=== PATIENT | male | born 1990 | race Caucasian/White ===

== ENCOUNTER 2016-10-04 09:18 | Emergency (ER) | payer SELFPAY ==
--- NOTE | 2016-10-04 11:08 | ED CLINICAL REPORT ---
Clinical Report - Physicians/Mid Levels [facility] [address] [place] [address] 10/04/2016 9:20 Patient: KORY HENDRIX Time Seen: 928. Arrived- By private vehicle. Historian- patient. HISTORY OF PRESENT ILLNESS Chief Complaint: ABDOMINAL PAIN. This started past few days and is still present and worsening. It was gradual in onset and has been constant but is not gone now. It is described as sharp and burning and it is described as located in the epigastric area and radiating (back). At its maximum, severity described as moderate. When seen in the E.D., severity described as moderate. Modifying factors- worsened by food. Relieved by rest. The patient has had nausea. He has had vomiting (food stuffs). He has had diarrhea (brown). No additional abdominal pain. (reports the pain worsens as soon as he tries to eat something or smells food despite having a good appetite). Similar symptoms previously: None. Recent medical care: Not recently seen/assessed. REVIEW OF SYSTEMS No fever or chest pain. All systems otherwise negative, except as recorded above. PAST HISTORY See nurses notes. Medications: None. Allergies: None. SOCIAL HISTORY Never smoker. History of drug use: marijuana. No alcohol use. No recent travel. Is a local resident. FAMILY HISTORY Negative. ADDITIONAL NOTES The nursing notes have been reviewed. PHYSICAL EXAM Vital Signs: 10/04/2016 09:25 BP: 152/82. HR: 60. RR: 22. O2 saturation: 100%. Oxygen saturation normal. Appearance: Alert. Oriented X3. Patient in mild distress. Eyes: Pupils equal, round and reactive to light. Eyes normal inspection. ENT: Ears normal. Nose normal. Pharynx normal. CVS: Normal heart rate and rhythm. Heart sounds normal. Pulses normal. Respiratory: No respiratory distress. Breath sounds normal. Chest nontender. Abdomen: Soft and nontender. Bowel sounds normal. No mass. (negative Weathers's. No tenderness at McBurney's. No rebound or guarding). Skin: Skin warm and dry. Normal skin color. No rash. Normal skin turgor. Extremities: Extremities exhibit normal ROM. No lower extremity edema. Neuro: Oriented X 3. No motor deficit. No sensory deficit. LABS, X-RAYS, AND EKG Laboratory Tests: UA-Culture if indicated: ([place]: 10/04/2016 10:11) ( [facility] 10/04/2016 10:25) Final results Test Result Flag Units (Reference) URINE COLOR YELLOW URINE APPEARANCE SL CLOUDY URINE GLUCOSE NEGATIVE (NEGATIVE) URINE BILIRUBIN NEGATIVE (NEGATIVE) URINE KETONE NEGATIVE (NEGATIVE) URINE SPECIFIC GRAVITY 1.010 (1.010-1.030) URINE PH >= 9.0 H (5.0-8.0) URINE PROTEIN 3+ (NEGATIVE) URINE UROBILINOGEN 2.0 EU/dL (0.2-1.0) The urobilinogen reagent area may react with interferingsubstances known to react with Corbin's reagent such asp-aminosalicylic acid and sulfonamides. Atypical colorreactions may be obtained in the presence of highconcentrations of p-aminobenzoic acid. The absence ofurobilinogen cannot be determined with this test. URINE NITRITE NEGATIVE (NEGATIVE) URINE BLOOD NEGATIVE (NEGATIVE) URINE LEUK ESTERASE NEGATIVE (NEGATIVE) URINE RBC 0-1 rbc/hpf (0-1) URINE WBC 0-1 wbc/hpf (0-1) URINE EPITHELIAL CELLS 0-1 EPI/hpf (0-5) URINE BACTERIA TRACE (<1+) (NONE SEEN) URINE COMMENT CULT NOT INDICATED 3+ AMORPHOUS PHOSPHATESURINE CULTURES ARE SET-UP BASED ON THE FOLLOWING CRITERIA:POSITIVE NITRITEPOSITIVE LEUKOCYTE ESTERASEGREATER THAN 10 WHITE BLOOD CELLSMODERATE (2+) OR GREATER BACTERIA CBC w Diff: (BRENTON: 10/04/2016 09:30) ( [facility] 10/04/2016 09:56) Final results Test Result Flag Units (Reference) WHITE BLOOD COUNT 13.9 H K/uL (4.5-11.5) RED BLOOD COUNT 5.15 M/uL (4.50-5.90) HEMOGLOBIN 16.2 gm/dL (13.5-17.5) HEMATOCRIT 49.0 % (41.0-53.0) MEAN CELL VOLUME 95 fL (80-100) MEAN CORPUSCULAR HGB 31 pg (26-34) MEAN CORPUSCULAR HGB CONC 33 g/dL (31-37) RED CELL DISTRIBUTION WIDTH 13.5 % (11.6-14.8) PLATELET COUNT 222 K/uL (150-400) NEUTROPHIL % 90.8 H % (50-75) LYMPH % 7.0 L % (25-40) MONO % 1.9 L % (3-14) EOSINOPHIL % 0 % (0-4) BASOPHIL % 0.3 % (0-2) CMP: (BRENTON: 10/04/2016 09:30) ( MsgRcvd 10/04/2016 09:59) Final results Test Result Flag Units (Reference) GLUCOSE 150 H mg/dL (70-110) BUN 20 H mg/dL (7-18) CREATININE 0.9 mg/dL (0.6-1.3) Estimated GFR >60 mL/min Estimated GFR- >60 mL/min Note: Persistent reduction over 3 months in eGFR<60 mL/min/1.73 m2 defines CKD. Patients with eGFR values>=60 mL/min/1.73 m2 may also have CKD if evidence ofpersistent proteinuria. Additional information may be foundat www.kidney.org. SODIUM 144 mmol/L (136-145) POTASSIUM 3.4 L mmol/L (3.5-5.1) CHLORIDE 103 mmol/L (98-107) CARBON DIOXIDE 31 mmol/L (21-32) CALCIUM 9.8 mg/dL (8.5-10.1) TOTAL PROTEIN 8.3 H g/dL (6.4-8.2) ALBUMIN 4.8 g/dL (3.3-5.0) BILIRUBIN, TOTAL 0.5 mg/dL (0.0-1.0) ALKALINE PHOSPHATASE 98 U/L (46-116) AST (SGOT) 19 U/L (15-37) ALT (SGPT) 36 U/L (12-78) LIPASE 87 U/L (73-393) . PROGRESS AND PROCEDURES Course of Care: the patient is a pleasant 25-year-old male with no pertinent past medical history presenting for evaluation of epigastric abdominal pain with nausea vomiting diarrhea. At this time differential diagnosis includes acute bronchitis, hepatitis, orgastritis/peptic ulcer disease. Patient be evaluated with GI cocktail as well as laboratory studies including urinalysis CBC, CMP, lipase. We'll also provide patient with fluids here in the emergency department as if he is having diarrhea and nausea and vomiting, likely has a small component of dehydration. Patient is agreeable to treatment plan. Laboratory studies are currently pending. Patient's workup is unremarkable remarkable for the findings above. Patient with mild elevation in white blood cell count. Liver enzymesand lipase are noted to be normal. No signs of urinary tract infection. BUN/creatinine ratio is greater than 20. Small component of dehydration noted. Patient reports complete relief of his discomfort with the GI cocktail. Patient likely with peptic ulcer disease versus gastritis. Because of the diarrhea and the nausea and vomiting, gastritis more likely favored. Patient will be given a trial of antacid medications and encouraged patient to follow up with his primary care doctor. Do not fill patient is admitted to the hospital require further emergency department workup/evaluation. Did not fill patient has acute cholecystitis. Patient's abdominal exam is continued to be benign and reassuring. Head discussion with patient in regards his workup here in the emergency department to home care, follow-up, and return precautions. All questions have been answered. The patient expressed understanding of these instructions and was agreeable to them. Prior to patient's depression in the emergency department he is noted to be tolerating by mouth. Or issues was provided because of the patient's slightly low potassium at 3.4. Do not feel patient needs to be started on potassium supplements however because of the patient's symptoms here today likely will resolve once he is able to eat and drink normally. CLINICAL IMPRESSION Acute epigastric abdominal pain. Vomiting with nausea. Diarrhea Mild dehydration INSTRUCTIONS Off work today. Warnings: GENERAL WARNINGS: Return or contact your physician immediately if your condition worsens or changes unexpectedly, if not improving as expected, or if other problems arise. SPECIFICALLY, return if you develop pain, fever, vomiting, the inability to keep fluids down, blood in vomitus, blood in diarrhea, fainting or lightheadedness. Your Current Medications: CONTINUE TAKING THE FOLLOWING MEDICATIONS: None*. Prescription Medications: Zofran (orally disintegrating tablets) 4 mg: take 1 orally every 8 hours as needed for nausea and vomiting. Dispense ten (10). No refill. Substitution is permissible. Pepcid 20 mg: take 1 orally every 12 hours for 10 days as needed for indigestion, upset stomach or heartburn. Dispense twenty (20). No refills. Substitution is permissible. Follow-up: Return to the emergency department as needed. Follow up with your doctor in three days. Reason for referral: recheck today's concerns. Summary of care provided to patient via paper. Screening today revealed the patient's blood pressure to be in the normal range. The patient should follow up with a primary care provider for blood pressure management. Understanding of the discharge instructions verbalized by patient. (Electronically signed by Garry Womack Dr. 10/04/2016 13:53)
--- NOTE | 2016-10-04 11:08 | ED NURSING NOTES ---
Clinical Report - Nurses [facility] [place] [address] 10/04/2016 9:20 Patient: KORY HENDRIX TRIAGE Triage time 09:25. Acuity: LEVEL 3. Chief Complaint: ABDOMINAL PAIN, NAUSEA, VOMITING and DIARRHEA and (Epigastric pain radiating to his back). --09:29 Brandee Dior R.N. 09:25 10/04/16. BP: 152/82. HR: 60. RR: 22. O2 saturation: 100%. Pain level now 03/11. --09:29 Brandee Dior R.N. Weight: 72.5 kg stated. Height/Length: 71 inches Per Patient. BMI: 22.3. --09:24 Brandee Dior R.N. Medications None. --09:27 Brandee Dior R.N. Allergies None. --09:27 Brandee Dior R.N. History Arrived by private vehicle, and accompanied by family. Primary physician (none). Onset was abrupt. (about 3 days). 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 PAST MEDICAL HX: Immunizations: status is unknown. SOCIAL HX: Never smoker. History of heavy drug use: marijuana. No alcohol use. --09:29 Brandee Dior R.N. ADDITIONAL SURGERIES: Right arm. --09:27 Brandee Dior R.N. PHYSICAL ASSESSMENT Ambulatory to room. Patient gowned. GENERAL / NEURO / PSYCH: Oriented X 4. Appears in pain, anxious and in distress. RESPIRATORY: Respirations not labored. GI / : Rebound tenderness. SKIN: Skin is warm and dry. --:29 Brandee Dior R.N. NURSING PROGRESS NOTES Patient gowned. Call light placed in reach. Patient ready for evaluation- ED physician notified. --:29 Brandee Dior R.N. 09:30 10/04/2016 Site #1 started via IV in the left forearm with an 20g angiocath; one attempt. Blood drawn: rainbow set. Labeled in the presence of the patient and sent to the lab. Saline lock flushed with 10 mL saline. --09:30 Brandee Dior R.N. 09:35 10/04/2016 Zofran (Ondansetron HCl) IVP 4 mg given over 1 minute(s) via site #1. Allergies verified and confirmed 5 rights. IV patency established. IV site checked: no pain, redness, or swelling. IV flushed thoroughly pre- and post-medication administration. IVP given by RN. --09:35 Brandee Dior R.N. 09:39 10/04/2016 Started bag #1 1000 mL IV Fluids IV NS (Saline); bolus of 1000 mL wide open via site #1. Allergies verified and confirmed 5 rights. IV patency established. IV site checked: no pain, redness, or swelling. IV flushed thoroughly pre- and post-medication administration. --09:39 Brandee Dior R.N. 09:49 10/04/2016 GI COCKTAIL WHITE (Simethicone) PO 30 mL given. Allergies verified and confirmed 5 rights. --09:54 Brandee Dior R.N. 10:55 10/04/16. BP: 125/68. HR: 45. RR: 16. O2 saturation: 99%. Pain level now 0/10. --10:55 Brandee Dior R.N. The patient reports no complaints and he is calm. Overall patient status is improved. --10:55 Brandee Dior R.N. ( fluids offered). --10:58 Brandee Dior R.N. 11:18 10/04/2016 Site #1 removed upon discharge. Bandaid applied. --11:18 Brandee Dior R.N. DISPOSITION / DISCHARGE Departure time: 11:18. Condition at departure: improved. No learning barriers present. Discharge instructions provided and reviewed with the patient. Patient verbalized understanding. Written instructions provided in Cypriot. The patient was discharged home and accompanied by family. He left the Emergency Department ambulatory and via private vehicle. Patient driving. --11:18 Brandee Dior R.N. 11:17 10/04/16. BP: 117/74. HR: 48. RR: 16. O2 saturation: 99%. Pain level now 0/10. --11:18 Brandee Dior R.N. Locked/Released at 10/04/2016 11:19 by Brandee Dior R.N.
--- NOTE | 2016-10-04 11:08 | ED ORDER SUMMARY ---
..... Patient: KORY HENDRIX OrderSheet [facility] VisitID: [id number] [address] [place] [address] 25y, M Registration Date/Time: 10/04/2016 ORDER SHEET Weight: 72.5 kg (stated) Allergies: None GENERAL ORDERS: CBC w Diff Urgent (09:38 10/04/2016 Raul Rondon) (9:39 DMakasi R.N.) CMP Urgent (09:10/04/2016 Raul Rondon) (9:39 DMakasi R.N.) UA-Culture if indicated Urgent (09:10/04/2016 Raul Rondon) (9:54 Carlitos R.N.) Lipase Urgent (:10/04/2016 Raul Rondon) (9:39 Carlitos R.N.) Pulse oximeter (09:10/04/2016 Raul Rondon) (9:39 Carlitos R.N.) PO Fluids (OJ) (10:56 10/04/2016 Raul Rondon) (10:57 Carlitos R.N.) MEDICATION ORDERS: GI Cocktail WHITE PO 30 mL (NOW) (09:38 10/04/2016 Raul Rondon) (9:54 DMakasi R.N.) IV FLUIDS: Zofran IV 4 mg (NOW) (09:34 10/04/2016 Carlitos R.NMitch verbal order read back to Raul Rondon) (9:35 DMakasi R.N.) IV NS : initial bolus 1000 mL (1000 mL/hr), then none - for X1 (NOW) (09:38 10/04/2016 Raul Rondon) (9:39 Carlitos R.N.) ORDER SHEET NOTES: [Electronically signed by Brandee Dior R.N. (11:19 10/04/2016)] [Electronically signed by Garry Womack Dr. (13:53 10/04/2016)] [Electronically locked/signed by Brandee Dior R.N. (11:10/04/2016)]
--- NOTE | 2016-10-04 11:08 | ED NURSING NOTES ---
Clinical Report - Nurses [facility] [place] [address] 10/04/2016 9:20 Patient: KORY HENDRIX TRIAGE Triage time 09:25. Acuity: LEVEL 3. Chief Complaint: ABDOMINAL PAIN, NAUSEA, VOMITING and DIARRHEA and (Epigastric pain radiating to his back). --09:29 Brandee Dior R.N. 09:25 10/04/16. BP: 152/82. HR: 60. RR: 22. O2 saturation: 100%. Pain level now 03/11. --09:29 Brandee Dior R.N. Weight: 72.5 kg stated. Height/Length: 71 inches Per Patient. BMI: 22.3. --09:24 Brandee Dior R.N. Medications None. --09:27 Brandee Dior R.N. Allergies None. --09:27 Brandee Dior R.N. History Arrived by private vehicle, and accompanied by family. Primary physician (none). Onset was abrupt. (about 3 days). 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 PAST MEDICAL HX: Immunizations: status is unknown. SOCIAL HX: Never smoker. History of heavy drug use: marijuana. No alcohol use. --09:29 Brandee Dior R.N. ADDITIONAL SURGERIES: Right arm. --09:27 Brandee Dior R.N. PHYSICAL ASSESSMENT Ambulatory to room. Patient gowned. GENERAL / NEURO / PSYCH: Oriented X 4. Appears in pain, anxious and in distress. RESPIRATORY: Respirations not labored. GI / : Rebound tenderness. SKIN: Skin is warm and dry. --:29 Brandee Dior R.N. NURSING PROGRESS NOTES Patient gowned. Call light placed in reach. Patient ready for evaluation- ED physician notified. --:29 Brandee Dior R.N. 09:30 10/04/2016 Site #1 started via IV in the left forearm with an 20g angiocath; one attempt. Blood drawn: rainbow set. Labeled in the presence of the patient and sent to the lab. Saline lock flushed with 10 mL saline. --09:30 Brandee Dior R.N. 09:35 10/04/2016 Zofran (Ondansetron HCl) IVP 4 mg given over 1 minute(s) via site #1. Allergies verified and confirmed 5 rights. IV patency established. IV site checked: no pain, redness, or swelling. IV flushed thoroughly pre- and post-medication administration. IVP given by RN. --09:35 Brandee Dior R.N. 09:39 10/04/2016 Started bag #1 1000 mL IV Fluids IV NS (Saline); bolus of 1000 mL wide open via site #1. Allergies verified and confirmed 5 rights. IV patency established. IV site checked: no pain, redness, or swelling. IV flushed thoroughly pre- and post-medication administration. --09:39 Brandee Dior R.N. 09:49 10/04/2016 GI COCKTAIL WHITE (Simethicone) PO 30 mL given. Allergies verified and confirmed 5 rights. --09:54 Brandee Dior R.N. 10:55 10/04/16. BP: 125/68. HR: 45. RR: 16. O2 saturation: 99%. Pain level now 0/10. --10:55 Brandee Dior R.N. The patient reports no complaints and he is calm. Overall patient status is improved. --10:55 Brandee Dior R.N. ( fluids offered). --10:58 Brandee Dior R.N. 11:18 10/04/2016 Site #1 removed upon discharge. Bandaid applied. --11:18 Brandee Dior R.N. DISPOSITION / DISCHARGE Departure time: 11:18. Condition at departure: improved. No learning barriers present. Discharge instructions provided and reviewed with the patient. Patient verbalized understanding. Written instructions provided in Andorran. The patient was discharged home and accompanied by family. He left the Emergency Department ambulatory and via private vehicle. Patient driving. --11:18 Brandee Dior R.N. 11:17 10/04/16. BP: 117/74. HR: 48. RR: 16. O2 saturation: 99%. Pain level now 0/10. --11:18 Brandee Dior R.N. Locked/Released at 10/04/2016 11:19 by Brandee Dior R.N.
--- NOTE | 2016-10-04 11:08 | ED ORDER SUMMARY ---
..... Patient: KORY HENDRIX OrderSheet [facility] VisitID: [id number] [address] [place] [address] 25y, M Registration Date/Time: 10/04/2016 ORDER SHEET Weight: 72.5 kg (stated) Allergies: None GENERAL ORDERS: CBC w Diff Urgent (09:38 10/04/2016 Raul Rondon) (9:39 DMakasi R.N.) CMP Urgent (09:10/04/2016 Raul Rondon) (9:39 DMakasi R.N.) UA-Culture if indicated Urgent (09:10/04/2016 Raul Rondon) (9:54 Carlitos R.N.) Lipase Urgent (:10/04/2016 Ralu Rondon) (9:39 Carlitos R.N.) Pulse oximeter (09:10/04/2016 Raul Rondon) (9:39 Carlitos R.N.) PO Fluids (OJ) (10:56 10/04/2016 Raul Rondon) (10:57 Carlitos R.N.) MEDICATION ORDERS: GI Cocktail WHITE PO 30 mL (NOW) (09:38 10/04/2016 Raul Rondon) (9:54 DMakasi R.N.) IV FLUIDS: Zofran IV 4 mg (NOW) (09:34 10/04/2016 Carlitos R.NMitch verbal order read back to Raul Rondon) (9:35 DMakasi R.N.) IV NS : initial bolus 1000 mL (1000 mL/hr), then none - for X1 (NOW) (09:38 10/04/2016 Raul Rondon) (9:39 Carlitos R.N.) ORDER SHEET NOTES: [Electronically signed by Brandee Dior R.N. (11:19 10/04/2016)] [Electronically signed by Garry Womack Dr. (13:53 10/04/2016)] [Electronically locked/signed by Brandee Dior R.N. (11:10/04/2016)]
--- NOTE | 2016-10-04 13:54 | ED MED RECONCILIATION SUMMARY ---
Patient: KORY HENDRIX Medication Reconciliation Report [facility] VisitID: [id number] [address] [place] [address] 25y, M Registration Date/Time: 10/04/2016 Weight: 72.5 kg Height/Length: 71 in. BMI: 22.3 ALLERGIES: None The patient's Home Medications are listed below: NONE. The source(s) of the original Home Medication information: Not obtained. The following Medications were given to the patient in the Emergency Department: Zofran [IVP] IVP 4 mg, administered: 10/04/2016 9:35:00 AM IV NS IV Fluids bolus 1000 mL wide open, administered: 10/04/2016 9:39:00 AM GI COCKTAIL WHITE [PO] PO 30 mL, administered: 10/04/2016 9:49:00 AM The following Medications were prescribed to the patient: Zofran (orally disintegrating tablets) 4 mg: take 1 orally every 8 hours as needed for nausea and vomiting. Dispense ten (10). No refill. Substitution is permissible. -- Garry Womack Dr. Pepcid 20 mg: take 1 orally every 12 hours for 10 days as needed for indigestion, upset stomach or heartburn. Dispense twenty (20). No refills. Substitution is permissible. -- Garry Womack Dr.
--- NOTE | 2016-10-04 13:54 | ED MAR SUMMARY ---
..... Medication Administration Record [facility] [address] [place] [address] Patient: KORY HENDRIX Visit ID: [id number] 25y, M Weight: 72.5 kg Height/Length: 71 in BMI: 22.3 ALLERGIES: None Given 09:35 10/04/2016 Brandee Dior R.N. Medication Administered: ZOFRAN [IVP] (ONDANSETRON HCL), Dose: 4 mg IVP over 1 minute(s), Site: #1 left forearm. Medication Ordered: Zofran IV 4 mg (NOW). Start 09:39 10/04/2016 Brandee Dior R.N. Medication Administered: IV NS (SALINE), Dose: IV Fluids, Bolus: 1000 mL wide open, Dispensed: 1000 mL bag, Site: #1 left forearm. Medication Ordered: IV NS : initial bolus 1000 mL (1000 mL/hr), then none - for X1 (NOW). Given 09:49 10/04/2016 Branede Dior R.N. Medication Administered: GI COCKTAIL WHITE [PO] (SIMETHICONE), Dose: 30 mL PO. Medication Ordered: GI Cocktail WHITE PO 30 mL (NOW).
--- NOTE | 2016-10-04 13:54 | ED MAR SUMMARY ---
..... Medication Administration Record [facility] [address] [place] [address] Patient: KORY HENDRIX Visit ID: [id number] 25y, M Weight: 72.5 kg Height/Length: 71 in BMI: 22.3 ALLERGIES: None Given 09:35 10/04/2016 Brandee Dior R.N. Medication Administered: ZOFRAN [IVP] (ONDANSETRON HCL), Dose: 4 mg IVP over 1 minute(s), Site: #1 left forearm. Medication Ordered: Zofran IV 4 mg (NOW). Start 09:39 10/04/2016 Brandee Dior R.N. Medication Administered: IV NS (SALINE), Dose: IV Fluids, Bolus: 1000 mL wide open, Dispensed: 1000 mL bag, Site: #1 left forearm. Medication Ordered: IV NS : initial bolus 1000 mL (1000 mL/hr), then none - for X1 (NOW). Given 09:49 10/04/2016 Brandee Dior R.N. Medication Administered: GI COCKTAIL WHITE [PO] (SIMETHICONE), Dose: 30 mL PO. Medication Ordered: GI Cocktail WHITE PO 30 mL (NOW).
--- NOTE | 2016-10-04 13:54 | ED DISCHARGE INSTRUCTIONS ---
Patient: KORY HENDRIX General Instructions [facility] VisitID: [id number] [place] [address] 25y, M Registration Date/Time: 10/04/2016 Acute epigastric abdominal pain. Vomiting with nausea. Diarrhea Mild dehydration INSTRUCTIONS Off work today. Warnings: GENERAL WARNINGS: Return or contact your physician immediately if your condition worsens or changes unexpectedly, if not improving as expected, or if other problems arise. SPECIFICALLY, return if you develop pain, fever, vomiting, the inability to keep fluids down, blood in vomitus, blood in diarrhea, fainting or lightheadedness. Your Current Medications: CONTINUE TAKING THE FOLLOWING MEDICATIONS: None*. Prescription Medications: Zofran (orally disintegrating tablets) 4 mg: take 1 orally every 8 hours as needed for nausea and vomiting. Dispense ten (10). No refill. Substitution is permissible. Pepcid 20 mg: take 1 orally every 12 hours for 10 days as needed for indigestion, upset stomach or heartburn. Dispense twenty (20). No refills. Substitution is permissible. Follow-up: Return to the emergency department as needed. Follow up with your doctor in three days. Reason for referral: recheck today's concerns. Summary of care provided to patient via paper. Screening today revealed the patient's blood pressure to be in the normal range. The patient should follow up with a primary care provider for blood pressure management. Understanding of the discharge instructions verbalized by patient. ADDITIONAL INFORMATION Abdominal Pain,Uncertain Cause [Male] Based on your visit today, the exact cause of your abdominalpain is not clear. Your exam and tests do not indicate a dangerous cause at this time. However, the signs of a serious problem may take more time to appear. Although your evaluation was reassuring today, sometimes early in the course of many conditions, exam and lab tests can appear normal. Therefore, it is important for you to watch for any new symptoms or worsening of your condition. Causes It may not be obvious what caused your symptoms. Pay attention to things that do seem to make your symptoms worse or better and discuss this with your doctor when you follow up. Diagnosis The evaluation of abdominal pain in the emergency department may onlyrequire an exam by the doctor or it may include blood, urine or imaging studies, depending on many factors. Sometimes exams and tests can identify a cause but in many cases, a clear cause is not found. Further testing at follow up visits may help to suggest a clear diagnosis. Home Care Rest as much as possible until your next exam. Try to avoid any medications (unless otherwise directed by your doctor), foods, activities, or other factors that you may have contributed to your symptoms. Try to eat foods that you know that you have tolerated well in the past. Certain diets may be recommended for some conditions that cause abdominal pain. However, since the cause of your symptoms may not be clear, discuss your diet more with your primary care provider or specialist for further recommendations. Eating several small meals per day as opposed to 2 or 3 larger meals may help. Monitor closely for anything that may make your symptoms worse or better. Pay close attention to symptoms below that may indicate worsening of your condition. Follow Up and Precautions See your doctoras instructed or sooneror if your symptoms are not improving.In some cases, you may need more testing. When to Seek Medical Attention Contact your doctor or see medical attention ifany of the following occur: Pain is becoming worse You are unable to take your medications due to excessive vomiting Swelling of the abdomen Fever of 100.4F (38C) or higher, or as directed by your health care provider Blood in vomit or bowel movements (dark red or black color) Jaundice (yellow color of eyes and skin) New onset of weakness, dizziness or fainting New onset of chest, arm, back, neck or jaw pain Vomiting [6Yr-Adult] Vomiting is a common symptom that may be due to different causes. These include gastroenteritis ("stomach flu"), food poisoning and gastritis. There are other more serious causes of vomiting which may be hard to diagnose early in the illness. Therefore, it is important to watch for the warning signs listed below. The main danger from repeated vomiting is dehydration. This is due to excess loss of water and minerals from the body. When this occurs, body fluids must be replaced. Home Care: If symptoms are severe, rest at home for the next 24 hours. You may use acetaminophen (Tylenol) or ibuprofen (Motrin, Advil) to control fever, unless another medicine was prescribed. [NOTE : If you have chronic liver or kidney disease or ever had a stomach ulcer or GI bleeding, talk with your doctor before using these medicines.] (Aspirin should never be used in anyone under 18 years of age who is ill with a fever. It may cause severe liver damage.) Avoid tobacco and alcohol use, which may worsen your symptoms. If medicines for vomiting were prescribed, take as directed. Once vomiting stops, then follow these guidelines: During The First 12-24 Hours follow the diet below: FRUIT JUICES: Apple, grape juice, clear fruit drinks, and electrolyte replacement drinks. BEVERAGES: Soft drinks without caffeine; mineral water (plain or flavored), decaffeinated tea and coffee. SOUPS: Clear broth, consomm and bouillon DESSERTS: Plain gelatin, popsicles and fruit juice bars. As you feel better, you may add 6-8 ounces of yogurt per day. During The Next 24 Hours you may add the following to the above: Hot cereal, plain toast, bread, rolls, crackers Plain noodles, rice, mashed potatoes, chicken noodle or rice soup Unsweetened canned fruit (avoid pineapple), bananas Limit caffeine and chocolate. No spices or seasonings except salt. During The Next 24 Hours Gradually resume a normal diet, as you feel better and your symptoms lessen. Follow Up with your doctor as advised if you are not improving over the next 2-3 days. Get Prompt Medical Attention if any of the following occur: Constant right-sided lower abdominal pain or increasing general abdominal pain Continued vomiting (unable to keep liquids down) for 24 hours Frequent diarrhea (more than 5 times a day); blood (red or black color) or mucus in diarrhea Reduced urine output or extreme thirst Weakness, dizziness or fainting Unusually drowsy or confused Fever of 100.4F (38C) oral or higher, not better with fever medication Yellow color of the eyes or skin Diarrhea, Uncertain Cause (Adult, Report Pending) Diarrhea has several possible causes. Commonstomach fluis caused by a virus. Food poisoning, bacteria or parasites are other causes for diarrhea. Only diarrhea caused by bacteria or parasites requires treatment with an antibiotic. Diarrhea from a virus or food poisoning improves with simple home treatment. A stool sample is needed to make the diagnosis of an infection with bacteria or parasites. Up to three stool specimens may be required to diagnose This may take up to two days to get the result. It may be necessary to wait until the stool test is complete to make the diagnosis and select the best antibiotic to prescribe. Home Care: If symptoms are severe, rest at home for the next 24 hours or until you are feeling better. You may use acetaminophen (Tylenol) or ibuprofen (Motrin, Advil) to control fever, unless another medicine was prescribed. [NOTE: If you have chronic liver or kidney disease or ever had a stomach ulcer or GI bleeding, talk with your doctor before using these medicines.] (Aspirin should never be used in anyone under 18 years of age who is ill with a fever. It may cause severe liver damage.) Avoid tobacco, caffeine and alcohol, which may worsen your symptoms. If anti-diarrhea medicine was prescribed, take this only as directed. Sometimes anti-diarrhea medicine can make your condition worse if the cause is an infectious diarrhea. Therefore, anti-diarrhea medicine should not be taken for this condition unless advised by your doctor. During The First 12-24 Hours follow the diet below: BEVERAGES: Sport drinks like Gatorade, soft drinks without caffeine; lonnie jenny, mineral water (plain or flavored), decaffeinated tea and coffee. SOUPS: Clear broth, consomm and bouillon DESSERTS: Plain gelatin (Jell-O), popsicles and fruit juice bars. During The Next 24 Hours you may add the following to the above: Hot cereal, plain toast, bread, rolls, crackers Plain noodles, rice, mashed potatoes, chicken noodle or rice soup Unsweetened canned fruit (avoid pineapple), bananas Limit fat intake to less than 15 grams per day by avoiding margarine, butter, oils, mayonnaise, sauces, gravies, fried foods, peanut butter, meat, poultry and fish. Limit fiber; avoid raw or cooked vegetables, fresh fruits (except bananas) and bran cereals. Limit caffeine and chocolate. No spices or seasonings except salt. During The Next 24 Hours Gradually resume a normal diet, as you feel better and your symptoms lessen. Follow Up with your doctor or as advised if you are not improving over the next two days. If you were asked to bring a specimen from home, bring the sample on the day of collection. You may call in 2 days (or as directed) for the results. Get Prompt Medical Attention if any of the following occur: Increasing abdominal pain or constant lower right abdominal pain Continued vomiting (unable to keep liquids down) Frequent diarrhea (more than 5 times a day) Blood in vomit or stool (black or red color) Reduced oral intake Dark urine, reduced urine output Weakness, dizziness, fainting Drowsiness, confusion, stiff neck or seizure Fever of 100.4F (38C) oral or higher, not better with fever medication New rash Dehydration (Adult) Dehydration occurs when your body loses too much fluid. This may be the result of vomiting a lot or from diarrhea,sweating a lot, or a high fever. It may also happen if you dont drink enough fluid when youre sick. Misuse of diuretics (water pills) can also be a cause. Symptoms include thirst and feeling dizzy, weak, fatigued, or very drowsy. The diet described below is usually enough to treat most cases. Sometimes you may needmedicine. Home Care Follow these guidelines for home care: Drink at least 12 8-ounce glasses of fluid every day to overcome the dehydration. Fluid may include water; orange juice; lemonade; apple, grape, and cranberry juice; clear fruit drinks; electrolyte replacement and sports drinks; and teas and coffee without caffeine. If you have been diagnosed with a kidney disease, ask your doctor how much and what types of fluids you should drink to prevent dehydration. If you have kidney disease, drinking too much fluid can cause it build up in the your body and be dangerous to your health. If you have fever, muscle aching, or headache from a viral syndrome, you may useacetaminophen or ibuprofen, unless another medicine was prescribed for this.If you have chronic liver or kidney disease or ever had a stomach ulcer or GI bleeding, talk with your doctor before using these medicines. Don't take aspirin if you are younger than 18 and are ill with a fever.Aspirin raises the chance forsevere liver injury. Follow-up care Follow up with your health care provider if you don't get better in the next 24 to 48 hours. When to seek medical care Get prompt medical attention if any of theseoccur: Continued vomiting (cant keep liquids down) Frequent diarrhea (more than 5 times a day); blood (red or black color) or mucus in diarrhea Blood in vomit or stool Swollen abdomen or increasing abdominal pain Weakness, dizziness, or fainting Unusually drowsy or confused Reduced urine output or extreme thirst Fever of 100.4 F (38 C) oral or higher that does not get better with fever medication Ondansetron Oral disintegrating tablet What is this medicine? ONDANSETRON (on ROSSY se bobby) is used to treat nausea and vomiting caused by chemotherapy. It is also used to prevent or treat nausea and vomiting after surgery. How should I use this medicine? These tablets are made to dissolve in the mouth. Do not try to push the tablet through the foil backing. With dry hands, peel away the foil backing and gently remove the tablet. Place the tablet in the mouth and allow it to dissolve, then swallow. While you may take these tablets with water, it is not necessary to do so. Talk to your consumer experience consultant regarding the use of this medicine in children. Special care may be needed. What side effects may I notice from receiving this medicine? Side effects that you should report to your doctor or health residential caregiver as soon as possible: allergic reactions like skin rash, itching or hives, swelling of the face, lips, or tongue breathing problems dizziness fast or irregular heartbeat feeling faint or lightheaded, falls fever and chills swelling of the hands and feet tightness in the chest Side effects that usually do not require medical attention (report to your doctor or health residential caregiver if they continue or are bothersome): constipation or diarrhea headache What may interact with this medicine? Do not take this medicine with any of the following medications: -apomorphine -cisapride -dofetilide -dronedarone -pimozide -thioridazine -ziprasidone This medicine may also interact with the following medications: -carbamazepine -phenytoin -rifampicin -tramadol -other medicines that prolong the QT interval (cause an abnormal heart rhythm) What if I miss a dose? If you miss a dose, take it as soon as you can. If it is almost time for your next dose, take only that dose. Do not take double or extra doses. Where should I keep my medicine? Keep out of the reach of children. Store between 2 and 30 degrees C (36 and 86 degrees F). Throw away any unused medicine after the expiration date. What should I tell my health care provider before I take this medicine? They need to know if you have any of these conditions: heart disease history of irregular heartbeat liver disease low levels of magnesium or potassium in the blood an unusual or allergic reaction to ondansetron, granisetron, other medicines, foods, dyes, or preservatives or trying to get breast-feeding What should I watch for while using this medicine? Check with your doctor or health residential caregiver as soon as you can if you have any sign of an allergic reaction. Famotidine Oral tablet What is this medicine? FAMOTIDINE (fa MELITON anderws) is a type of antihistamine that blocks the release of stomach acid. It is used to treat stomach or intestinal ulcers. It can also relieve heartburn from acid reflux. How should I use this medicine? Take this medicine by mouth with a glass of water. Follow the directions on the prescription label. If you only take this medicine once a day, take it at bedtime. Take your doses at regular intervals. Do not take your medicine more often than directed. Talk to your consumer experience consultant regarding the use of this medicine in children. Special care may be needed. What side effects may I notice from receiving this medicine? Side effects that you should report to your doctor or health residential caregiver as soon as possible: agitation, nervousness confusion hallucinations skin rash, itching Side effects that usually do not require medical attention (report to your doctor or health residential caregiver if they continue or are bothersome): constipation diarrhea dizziness headache What may interact with this medicine? delavirdine itraconazole ketoconazole What if I miss a dose? If you miss a dose, take it as soon as you can. If it is almost time for your next dose, take only that dose. Do not take double or extra doses. Where should I keep my medicine? Keep out of the reach of children. Store at room temperature between 15 and 30 degrees C (59 and 86 degrees F). Do not freeze. Throw away any unused medicine after the expiration date. What should I tell my health care provider before I take this medicine? They need to know if you have any of these conditions: kidney or liver disease trouble swallowing an unusual or allergic reaction to famotidine, other medicines, foods, dyes, or preservatives or trying to get breast-feeding What should I watch for while using this medicine? Tell your doctor or health residential caregiver if your condition does not start to get better or if it gets worse. Finish the full course of tablets prescribed, even if you feel better. Do not take with aspirin, ibuprofen or other antiinflammatory medicines. These can make your condition worse. Do not smoke cigarettes or drink alcohol. These cause irritation in your stomach and can increase the time it will take for ulcers to heal. If you get black, tarry stools or vomit up what looks like coffee grounds, call your doctor or health residential caregiver at once. You may have a bleeding ulcer. You have been given the following additional information: Abdominal Pain, Unknown Cause, (Male) Vomiting (6Y-Adult) Diarrhea, Unk Cause (Adult) Report Pendg Dehydration (Adult) Ondansetron Oral disintegrating tablet Famotidine Oral tablet Off work today. (Electronically signed by Garry Womack Dr. 10/04/2016 13:53)
--- NOTE | 2016-10-04 13:54 | ED MED RECONCILIATION SUMMARY ---
Patient: KORY HENDRIX Medication Reconciliation Report [facility] VisitID: [id number] [address] [place] [address] 25y, M Registration Date/Time: 10/04/2016 Weight: 72.5 kg Height/Length: 71 in. BMI: 22.3 ALLERGIES: None The patient's Home Medications are listed below: NONE. The source(s) of the original Home Medication information: Not obtained. The following Medications were given to the patient in the Emergency Department: Zofran [IVP] IVP 4 mg, administered: 10/04/2016 9:35:00 AM IV NS IV Fluids bolus 1000 mL wide open, administered: 10/04/2016 9:39:00 AM GI COCKTAIL WHITE [PO] PO 30 mL, administered: 10/04/2016 9:49:00 AM The following Medications were prescribed to the patient: Zofran (orally disintegrating tablets) 4 mg: take 1 orally every 8 hours as needed for nausea and vomiting. Dispense ten (10). No refill. Substitution is permissible. -- Garry Womack Dr. Pepcid 20 mg: take 1 orally every 12 hours for 10 days as needed for indigestion, upset stomach or heartburn. Dispense twenty (20). No refills. Substitution is permissible. -- Garry Womack Dr.
== END 2016-10-04 11:19 | disposition home or self-care (01) ==
LOC: ED SRH 09:18
DX: R10.13 Epigastric pain (principal); R11.2 Nausea with vomiting, unspecified; R19.7 Diarrhea, unspecified; E86.0 Dehydration
CPT/HCPCS: 90004; 90100; 92235; 95059